=== PATIENT | male | born 1960 | race Caucasian/White ===

== ENCOUNTER 2020-06-29 08:19 | Outpatient (REF) | payer OTHER, SELFPAY ==
--- NOTE | 2020-06-29 | US_ITS ---
EXAMINATION: US ABDOMINAL AORTIC ANEURYSM CLINICAL INFORMATION: Question aortic aneurysm. COMPARISON: None. TECHNIQUE: Routine retroperitoneal imaging of the abdominal aorta and iliac arteries was performed. FINDINGS: Proximal abdominal aorta measures 3.0 cm in AP and 3.1 cm in transverse. Mid abdominal aorta measures 2.5 cm in AP and 2.4 cm in transverse dimension. Distal abdominal aorta measures 2.5 cm in AP and 3.0 cm in transverse dimension. Peak systolic velocity abdominal aorta measures 174 cm/second. Right common iliac artery measures 1.7 x 1.8 cm in AP and transverse dimension. Left common iliac artery measures 2.1 x 2.1 cm. US/US abdominal aortic aneurysm IMPRESSION: Borderline dilation of distal abdominal aorta measuring 2.5 cm. Mildly dilated bilateral common iliac arteries, left slightly greater than right.
== END 2020-06-29 08:20 | disposition home or self-care (01) ==
LOC: HO.HMGCX 08:19
PROVIDERS: PCP Internal Medicine; Visit Provider Surgery Vascular Surgery
DX: I71.4 Abdominal aortic aneurysm, without rupture (principal)
CPT/HCPCS: 76706

== ENCOUNTER 2021-12-08 08:24 | Outpatient (REF) | payer OTHER, SELFPAY ==
--- NOTE | ~2021-12-08 | US_ITS ---
EXAMINATION: US RETROPERITONEAL LIMITED (AORTA) CLINICAL INFORMATION: Abdominal aortic aneurysm evaluation. COMPARISON: Abdominal aortic ultrasound on 06/29/2020 TECHNIQUE: Ramos-scale, color Doppler and spectral Doppler evaluation of the abdominal aorta. FINDINGS: There is atherosclerotic disease. The measurements of the aorta in maximum AP and transverse dimensions respectively are as follows: Proximal: 2.8 x 2.8 cm. Mid: 2.6 x 2.4 cm. Distal: 3.2 x 2.4 cm. PSV: 109 cm/s. The measurements of the common iliac arteries in maximum AP and TRV dimensions are as follows: Right Common Iliac Artery: 1.9 x 2.2 cm. Left Common Iliac Artery: 2.3 x 2.2 cm. US/US abdominal aortic aneurysm IMPRESSION: Mild enlargement of the distal infrarenal abdominal aortic aneurysm measuring 3.2 cm. Bilateral common iliac artery aneurysms. Consider CTA or MRA for further evaluation.
== END 2021-12-08 08:25 | disposition home or self-care (01) ==
LOC: HO.HMGCX 08:24
PROVIDERS: Visit Provider Surgery Vascular Surgery
DX: I71.4 Abdominal aortic aneurysm, without rupture (principal)
CPT/HCPCS: 76706

== ENCOUNTER → 2021-12-21 11:39 | Outpatient (BNVA) | payer OTHER, SELFPAY | PROVIDERS: PCP Internal Medicine; Visit Provider Surgery Vascular Surgery | DX: Z13.89 Encounter for screening for other disorder (principal) ==

== ENCOUNTER 2022-12-06 08:19 | Outpatient (REF) | payer OTHER, SELFPAY ==
--- NOTE | ~2022-12-06 | US_ITS ---
EXAMINATION: US RETROPERITONEAL LIMITED (AORTA) CLINICAL INFORMATION: Abdominal aortic aneurysm without rupture. COMPARISON: Ultrasound aorta 12/08/2021 and 06/29/2020. TECHNIQUE: Ramos-scale, color Doppler and spectral Doppler evaluation of the abdominal aorta. FINDINGS: Mild atherosclerotic disease of the distal aorta. The measurements of the aorta in maximum AP and transverse dimensions respectively are as follows: Proximal: 2.8 x 2.6 cm. Mid: 2.2 x 2.2 cm. Distal: 2.5 x 2.5 cm. PSV: 144 cm/s. The measurements of the common iliac arteries in maximum AP and TRV dimensions are as follows: Right Common Iliac Artery: 2.2 x 2.3 cm. Previously 1.9 x 2.2 cm. Left Common Iliac Artery: 2.2 x 2.0 cm. Previously 2.3 x 2.2 cm. US/US abdominal aortic aneurysm IMPRESSION: Distal abdominal aorta measuring 2.5 x 2.5 cm, previously 3.2 cm in the largest dimension. This difference is likely related to differences in measuring techniques under ultrasound. For better assessment, recommend CTA or MRA of the abdomen/pelvis. Stable bilateral iliac artery aneurysms.
== END 2022-12-06 08:20 | disposition home or self-care (01) ==
LOC: HO.HMGCX 08:19
PROVIDERS: PCP Family Medicine; Visit Provider Surgery Vascular Surgery
DX: I71.40 Abdominal aortic aneurysm, without rupture, unspecified (principal)
CPT/HCPCS: 76706

== ENCOUNTER → 2023-01-05 14:53 | Outpatient (BNVA) | payer OTHER, SELFPAY | PROVIDERS: PCP Family Medicine; Visit Provider Surgery Vascular Surgery ==

== ENCOUNTER 2023-12-19 08:20 | Outpatient (REF) | payer OTHER, SELFPAY ==
--- NOTE | ~2023-12-19 | US_ITS ---
EXAMINATION: US RETROPERITONEAL LIMITED (AORTA) CLINICAL INFORMATION: Abdominal aortic aneurysm, without rupture. COMPARISON: US retroperitoneal limited (aorta) 12/06/2022 and 12/08/2021. TECHNIQUE: Ramos-scale, color Doppler and spectral Doppler evaluation of the abdominal aorta. FINDINGS: Mild atherosclerotic disease of the mid aorta. The measurements of the aorta in maximum AP and transverse dimensions respectively are as follows: Proximal: 2.3 x 2.8 cm, previously 2.8 x 2.6 cm. Mid: 2.5 x 2.8 cm, previously 2.2 x 2.2 cm. Distal: 2.3 x 2.8 cm, previously 2.5 x 2.5 cm. PSV: 49.3 cm/s, previously 144 c/s. The measurements of the common iliac arteries in maximum AP and TRV dimensions are as follows: Right Common Iliac Artery: 1.4 x 1.4 cm, previously 2.1 x 2.3 cm. Left Common Iliac Artery: 1.7 x 1.7 cm, previously 2.2 x 2 cm. US/US abdominal aortic aneurysm IMPRESSION: 1. No sonographic evidence of abdominal aortic aneurysm. Based on published guidelines in J Am Joe Radiol 2013; 10(10):789-794 and J Vasc Surg. 2018; 67:2-77, the recommendation for an abdominal aorta with diameter 2.6-2.9 cm is follow-up every 5 years if the aorta that meets the criteria for AAA (>1.5 x proximal normal segment; no f/u if < 1.5 x proximal normal segment; no f/u for aorta < 2.6 cm). 2. Previously seen bilateral iliac artery aneurysms are not redemonstrated; however, this difference is likely related to differences in measuring techniques under ultrasound. For better assessment, recommend CTA or MRA of the abdomen/pelvis.
== END 2023-12-19 08:21 | disposition home or self-care (01) ==
LOC: HO.HMGCX 08:20
PROVIDERS: PCP Family Medicine; Visit Provider Surgery Vascular Surgery
DX: I71.40 Abdominal aortic aneurysm, without rupture, unspecified (principal)
CPT/HCPCS: 76706